=== PATIENT | male | born 1960 | race Caucasian/White ===

== ENCOUNTER 2019-10-20 09:41 | Outpatient (RCR) | payer BC, OTHER, SELFPAY ==
[2019-07-24 11:21] LABS: Hematocrit 44.2 % (42.0-52.0); Hemoglobin 15.1 g/dL (14.0-18.0); Mean Corpuscular HGB Conc 34.2 g/dl (32-36); Mean Corpuscular Hemoglobin 32.5 pg (26-34); Mean Corpuscular Volume 95.1 fl (80-100); Platelet Count Result 153 k/mm3 (150-375); Red Blood Count 4.65 M/mm3 (4.6-6.20); Red Cell Distribution Width 14.1 % (11.5-14.5); White Blood Count 4.5 K/mm3 (4.5-10.0)
[2019-07-24 11:34] LABS: Alanine Aminotransferase 34 U/L (4-50); Albumin Level 4.1 g/dL (3.5-5.1); Alkaline Phosphatase 51 U/L (38-126); Aspartate Amino Transferase 27 U/L (17-59); Bilirubin,Total 0.3 mg/dL (0.2-1.3); Blood Urea Nitrogen 14 mg/dL (9-20); Calcium 9.3 mg/dL (8.4-10.2); Carbon Dioxide 25 mmol/L (22-30); Chloride 106 mmol/L (98-107); Estimated Glomerular Filt Rate > 60; Glucose 94 mg/dL (75-110); Potassium 3.8 mmol/L (3.4-5.0); Sodium 139 mmol/L (137-145)
[2019-10-20 10:06] LABS: Hematocrit 42.7 % (42.0-52.0); Hemoglobin 14.2 g/dL (14.0-18.0); Mean Corpuscular HGB Conc 33.3 g/dl (32-36); Mean Corpuscular Hemoglobin 31.8 pg (26-34); Mean Corpuscular Volume 95.5 fl (80-100); Mean Platelet Volume 11.4 fl (7.4-10.4); Platelet Count Result 143 k/mm3 (150-375); Red Blood Count 4.47 M/mm3 (4.6-6.20); Red Cell Distribution Width 14.2 % (11.5-14.5); White Blood Count 3.7 K/mm3 (4.5-10.0)
[2019-10-20 10:16] LABS: Alanine Aminotransferase 104 U/L (4-50); Alkaline Phosphatase 60 U/L (38-126); Aspartate Amino Transferase 56 U/L (17-59); Bilirubin,Total 0.5 mg/dL (0.2-1.3); Blood Urea Nitrogen 16 mg/dL (9-20); Calcium 9.3 mg/dL (8.4-10.2); Carbon Dioxide 29 mmol/L (22-30); Chloride 102 mmol/L (98-107); Estimated Glomerular Filt Rate > 60; Glucose 89 mg/dL (75-110); Potassium 3.9 mmol/L (3.4-5.0); Sodium 137 mmol/L (137-145)
== END 2019-10-22 23:59 | disposition home or self-care (01) ==
LOC: ANHLAB 09:41
PROVIDERS: PCP Internal Medicine; Visit Provider Internal Medicine Rheumatology
DX: Z51.81 Encounter for therapeutic drug level monitoring (principal); Z79.899 Other long term (current) drug therapy
CPT/HCPCS: 36415; 80048; 80076; 85027

== ENCOUNTER 2020-01-13 09:54 | Outpatient (RCR) | payer OTHER, SELFPAY ==
[2020-01-13 10:32] LABS: Hemoglobin 15.4 g/dL (14.0-18.0); Mean Corpuscular HGB Conc 33.5 g/dl (32-36); Mean Corpuscular Hemoglobin 31.8 pg (26-34); Mean Corpuscular Volume 94.8 fl (80-100); Mean Platelet Volume 11.8 fl (7.4-10.4); Platelet Count Result 150 k/mm3 (150-375); Red Blood Count 4.85 M/mm3 (4.6-6.20); Red Cell Distribution Width 14.8 % (11.5-14.5); White Blood Count 8.1 K/mm3 (4.5-10.0)
[2020-01-13 10:46] LABS: Alanine Aminotransferase 62 U/L (4-50); Albumin Level 4.3 g/dL (3.5-5.1); Alkaline Phosphatase 64 U/L (38-126); Aspartate Amino Transferase 39 U/L (17-59); Bilirubin,Total 0.4 mg/dL (0.2-1.3); Blood Urea Nitrogen 13 mg/dL (9-20); Calcium 9.5 mg/dL (8.4-10.2); Carbon Dioxide 30 mmol/L (22-30); Chloride 103 mmol/L (98-107); Cholesterol 135 mg/dL (0-200); Estimated Glomerular Filt Rate > 60; Glucose 92 mg/dL (75-110); HDL Direct 35 mg/dL; Potassium 4.5 mmol/L (3.4-5.0); Sodium 137 mmol/L (137-145); Triglycerides 172 mg/dL (<150)
[2020-01-13 10:57] LABS: LDL Cholesterol Direct 76 mg/dL
== END 2020-04-12 23:59 | disposition home or self-care (01) ==
LOC: ANHLAB 09:54
PROVIDERS: PCP Internal Medicine; Visit Provider Internal Medicine Rheumatology
DX: Z51.81 Encounter for therapeutic drug level monitoring (principal); I10 Essential (primary) hypertension; Z79.899 Other long term (current) drug therapy
CPT/HCPCS: 36415; 80053; 80061; 82248; 85027

== ENCOUNTER 2020-05-24 03:44 | Outpatient (CLI) | payer OTHER, SELFPAY ==
[2020-05-24 18:37] LABS: SARS-CoV-2 RNA PCR Negative
== END 2020-05-24 03:45 | disposition home or self-care (01) ==
LOC: ANHCOVIDDT 03:44
PROVIDERS: PCP Internal Medicine; Visit Provider Internal Medicine Gastroenterology
DX: Z01.812 Encounter for preprocedural laboratory examination (principal); Z20.828 Contact with and (suspected) exposure to other viral communicable diseases
CPT/HCPCS: 87635; C9803; U0003

== ENCOUNTER 2020-05-26 00:50 | Day surgery (SDC) | payer OTHER, SELFPAY ==
[2020-05-18 14:49] VITALS: BMI 36.3
[2020-05-26 07:34] VITALS: BP 116/69; PULSE 76; RESP 22; TEMP 36.4; O2SAT 96
[2020-05-26] MEDS: LACTATED RINGERS 1,000 ML 150 ML IV CONT (07:36)
--- NOTE | 2020-05-26 08:54 | P.HP_ITS ---
History of Present Illness History of Present Illness Consent: Risks, benefits, and alternatives have been discussed and questions answered. Patient agrees to proceed with procedure. Chief complaint: Dysphagia Narrative: Frank Hooks is a 59 year old W male referred for EGD and possible esophageal dilatation for evaluation of least 1 year history of dysphagia which has worsened over the past several months. Patient states that this can occur with liquids or solids. He also has associated chest pain in the midsternal region. He has a history of chronic heartburn is not taking any medication. He has had no weight loss. His nonsmoker alcohol socially. He has never had EGD in the past. States he had a colonoscopy several years ago by another examiner reportedly had a couple polyps in was asked return in 5 years. COUNT INCLUDES THE [facility] Past Medical History Medical History (Updated 05/26/20 @ 08:56 by Prasad Blackwell MD) CAD (coronary artery disease) Congestive heart failure (CHF) EF 60 percent Fusion of lumbar spine Hyperlipidemia Hypertension Rheumatoid arthritis Meds Home Medications and Allergies Home Medications Medication Instructions Recorded Confirmed Type Tumeric 500 mg PO DAILY 05/18/20 05/18/20 History aspirin 81 mg PO DAILY 05/18/20 05/18/20 History carvedilol 3.125 mg PO DAILY 05/18/20 05/18/20 History cyanocobalamin (vitamin B-12) 1,000 mcg IM MONTHLY 05/18/20 05/18/20 History etanercept [Enbrel Mini] 50 mg SUBCUT WEEKLY 05/18/20 05/18/20 History folic acid 1 mg PO DAILY 05/18/20 05/18/20 History furosemide 20 mg PO DAILY 05/18/20 05/18/20 History isosorbide mononitrate 30 mg PO DAILY 05/18/20 05/18/20 History lisinopril 10 mg PO DAILY 05/18/20 05/18/20 History methotrexate sodium 25 mg PO WEEKLY 05/18/20 05/18/20 History naloxone [Narcan] 1 spray INTRANASAL Q2M 05/18/20 05/18/20 History nitroglycerin [Nitrostat] 0.4 mg SUBLINGUAL Q5-15M PRN 05/18/20 05/18/20 History pregabalin 100 mg PO TID 05/18/20 05/18/20 History rosuvastatin 20 mg PO HS 05/18/20 05/18/20 History tapentadol [Nucynta ER] 100 mg PO BID 05/18/20 05/18/20 History vitamin B complex 1 cap PO DAILY 05/18/20 05/18/20 History Allergies Allergy/AdvReac Type Severity Reaction Status Date / Time shellfish derived Allergy Swelling Verified 05/26/20 07:33 of Lip/Tongue/Throat Vital Signs Vital Signs - 24 hr 05/26/20 07:34 Temperature 36.4 C Pulse Rate 76 Respiratory Rate 22 H Blood Pressure 116/69 Pulse Oximetry 96 Exam Const: Orientation/consciousness: patient oriented x3 Resp: Auscultation: clear to auscultation bilaterally Cardio: Rate: regular rate Rhythm: regular rhythm Heart sounds: no murmurs GI: GI Palp: Yes Soft to palpation, No Tenderness to palpation present (GI), Yes No hepatosplenomegaly present and No Palpable mass present Auscultation: normal bowel sounds Neuro: General: patient oriented x3 and no focal motor deficits Extrem: General: no pedal edema Assessment and Plan Additional Plan EGD with possible esophageal dilatation for evaluation of dysphagia
--- NOTE | 2020-05-26 08:56 | WPDANESEPPF ---
Anes - Initial Pre Proc Eval Procedure: Operation Date: 05/26/20 08:30 Proposed Procedures p Esophagogastroduodenoscopy - Prasad Blackwell MD Date/Time: 05/26/20 08:56 Surgeon: Prasad Blackwell MD Pre Op Diagnosis: Dysphagia Patient Data Age: 59 Gender: M Height: 5 ft 6 in Weight: 102 kg Last Vital Signs Temp 97.6 F 05/26/20 07:34 Pulse 76 05/26/20 07:34 Resp 22 H 05/26/20 07:34 BP 116/69 05/26/20 07:34 Pulse Ox 96 05/26/20 07:34 Allergies Allergy/AdvReac Type Severity Reaction Status Date / Time shellfish derived Allergy Swelling Verified 05/26/20 07:33 of Lip/Tongue/Throat Home Medications Medication Instructions Recorded Confirmed Type Tumeric 500 mg PO DAILY 05/18/20 05/18/20 History aspirin 81 mg PO DAILY 05/18/20 05/18/20 History carvedilol 3.125 mg PO DAILY 05/18/20 05/18/20 History cyanocobalamin (vitamin B-12) 1,000 mcg IM MONTHLY 05/18/20 05/18/20 History etanercept [Enbrel Mini] 50 mg SUBCUT WEEKLY 05/18/20 05/18/20 History folic acid 1 mg PO DAILY 05/18/20 05/18/20 History furosemide 20 mg PO DAILY 05/18/20 05/18/20 History isosorbide mononitrate 30 mg PO DAILY 05/18/20 05/18/20 History lisinopril 10 mg PO DAILY 05/18/20 05/18/20 History methotrexate sodium 25 mg PO WEEKLY 05/18/20 05/18/20 History naloxone [Narcan] 1 spray INTRANASAL Q2M 05/18/20 05/18/20 History nitroglycerin [Nitrostat] 0.4 mg SUBLINGUAL Q5-15M PRN 05/18/20 05/18/20 History pregabalin 100 mg PO TID 05/18/20 05/18/20 History rosuvastatin 20 mg PO HS 05/18/20 05/18/20 History tapentadol [Nucynta ER] 100 mg PO BID 05/18/20 05/18/20 History vitamin B complex 1 cap PO DAILY 05/18/20 05/18/20 History Patient hx anesthesia problems: none Family hx anesthesia problems: none Anes - Eval Final PreProcedure Day of Procedure 05/26/20 08:56 Patient weight: overweight Heart: regular rate and rhythm Lungs: clear to auscultation Airway: Mallampati scale class II Neurological: alert and oriented Last oral intake: >/= 8 hours ASA classification: III Emergent: no Anesthetic plan: proceed Anesthesia type and monitoring: general GIVS and standard monitoring Informed Consent: The patient's anesthetic plan and its attendant risks and benefits were discussed with the patient/family/POA. Questions were solicited and answers provided to the satisfaction of the patient/family/POA.
[2020-05-26 09:17] VITALS: BP 100/63; PULSE 82; RESP 21; O2SAT 93
[2020-05-26 09:27] VITALS: BP 117/53; PULSE 75; RESP 23; O2SAT 96
[2020-05-26 09:36] VITALS: BP 107/68; PULSE 71; RESP 12; O2SAT 96
== END 2020-05-26 09:53 | disposition home or self-care (01) ==
PROVIDERS: PCP Internal Medicine; Visit Provider Internal Medicine Gastroenterology
PROC: 0DJ08ZZ Inspection of Upper Intestinal Tract, Via Natural or Artificial Opening Endoscopic (ICD-10-PCS; CPT 43235; principal; 2020-05-26 08:30)
DX: K22.11 Ulcer of esophagus with bleeding (principal); K21.0 Gastro-esophageal reflux disease with esophagitis; K22.2 Esophageal obstruction; K44.9 Diaphragmatic hernia without obstruction or gangrene; I11.0 Hypertensive heart disease with heart failure; I50.9 Heart failure, unspecified; I25.10 Atherosclerotic heart disease of native coronary artery without angina pectoris; E78.5 Hyperlipidemia, unspecified; M06.9 Rheumatoid arthritis, unspecified; Z98.1 Arthrodesis status; Z79.82 Long term (current) use of aspirin
CPT/HCPCS: 43239; 87635; 88305; C9803; J2704; J7120; U0003

== ENCOUNTER 2020-07-11 10:15 | Outpatient (RCR) | payer OTHER, SELFPAY ==
[2020-04-14 10:57] LABS: Hematocrit 46.1 % (42.0-52.0); Hemoglobin 15.9 g/dL (14.0-18.0); Mean Corpuscular HGB Conc 34.5 g/dl (32-36); Mean Corpuscular Hemoglobin 32.4 pg (26-34); Mean Corpuscular Volume 93.9 fl (80-100); Platelet Count Result 168 k/mm3 (150-375); Red Blood Count 4.91 M/mm3 (4.6-6.20); Red Cell Distribution Width 14.6 % (11.5-14.5); White Blood Count 7.2 K/mm3 (4.5-10.0)
[2020-04-14 11:15] LABS: Alanine Aminotransferase 52 U/L (4-50); Albumin Level 4.2 g/dL (3.5-5.1); Alkaline Phosphatase 47 U/L (38-126); Anion Gap 10.8 mmol/L (7-16); Aspartate Amino Transferase 50 U/L (17-59); Bilirubin,Total 0.8 mg/dL (0.2-1.3); Blood Urea Nitrogen 14 mg/dL (9-20); Calcium 8.7 mg/dL (8.4-10.2); Carbon Dioxide 28 mmol/L (22-30); Chloride 103 mmol/L (98-107); Estimated Glomerular Filt Rate > 60; Glucose 88 mg/dL (75-110); Potassium 4.8 mmol/L (3.4-5.0); Sodium 137 mmol/L (137-145)
[2020-07-11 11:06] LABS: Hemoglobin 15.7 g/dL (14.0-18.0); Mean Corpuscular HGB Conc 34.9 g/dl (32-36); Mean Corpuscular Hemoglobin 31.8 pg (26-34); Mean Corpuscular Volume 91.3 fl (80-100); Mean Platelet Volume 12.2 fl (7.4-10.4); Platelet Count Result 163 k/mm3 (150-375); Red Blood Count 4.93 M/mm3 (4.6-6.20); White Blood Count 5.4 K/mm3 (4.5-10.0)
[2020-07-11 11:18] LABS: Alanine Aminotransferase 77 U/L (4-50); Albumin Level 4.2 g/dL (3.5-5.1); Alkaline Phosphatase 62 U/L (38-126); Anion Gap 5 mmol/L (8-16); Aspartate Amino Transferase 52 U/L (17-59); Bilirubin,Total 0.8 mg/dL (0.2-1.3); Blood Urea Nitrogen 22 mg/dL (9-20); Calcium 9.5 mg/dL (8.4-10.2); Carbon Dioxide 28 mmol/L (22-30); Chloride 105 mmol/L (98-107); Estimated Glomerular Filt Rate > 60; Glucose 101 mg/dL (75-110); Potassium 3.9 mmol/L (3.4-5.0); Sodium 138 mmol/L (137-145)
== END 2020-07-13 23:59 | disposition home or self-care (01) ==
LOC: ANHLAB 10:15
PROVIDERS: PCP Internal Medicine; Visit Provider Internal Medicine Rheumatology
DX: Z51.81 Encounter for therapeutic drug level monitoring (principal); Z79.899 Other long term (current) drug therapy
CPT/HCPCS: 36415; 80048; 80076; 85027

== ENCOUNTER 2021-01-09 10:34 | Outpatient (RCR) | payer OTHER, SELFPAY ==
[2020-10-15 08:24] LABS: Basophils Percent Auto 0.3 % (0.2-1.2); Eosinophils Absolute Auto 0.1 K/mm3 (0-0.3); Eosinophils Percent Auto 1.7 % (0-4.4); Hemoglobin 15.1 g/dL (14.0-18.0); Immature Granulocyte Absolute 0.06 K/mm3 (0.00-0.031); Lymphocytes Absolute Auto 1.15 K/mm3 (0.9-3.2); Mean Corpuscular HGB Conc 34.3 g/dl (32-36); Mean Corpuscular Volume 93.2 fl (80-100); Monocytes Absolute Auto 0.5 K/mm3 (0.1-0.6); Monocytes Percent Auto 8.3 % (2.6-8.5); Neutrophils Absolute Auto 4.2 K/mm3 (1.3-6.7); Neutrophils Percent Auto 69.7 % (45.5-73.1); Platelet Count Result 133 k/mm3 (150-375); Red Blood Count 4.72 M/mm3 (4.6-6.20); Red Cell Distribution Width 14.9 % (11.5-14.5); White Blood Count 6.1 K/mm3 (4.5-10.0)
[2020-10-15 08:41] LABS: Alanine Aminotransferase 60 U/L (4-50); Albumin Level 3.7 g/dL (3.5-5.1); Alkaline Phosphatase 70 U/L (38-126); Anion Gap 3 mmol/L (8-16); Aspartate Amino Transferase 44 U/L (17-59); Bilirubin,Total 0.6 mg/dL (0.2-1.3); Blood Urea Nitrogen 6 mg/dL (9-20); Calcium 9.2 mg/dL (8.4-10.2); Carbon Dioxide 29 mmol/L (22-30); Chloride 108 mmol/L (98-107); Estimated Glomerular Filt Rate > 60; Glucose 116 mg/dL (75-110); Sodium 140 mmol/L (137-145)
[2020-10-20 13:43] LABS: Testosterone Free 64.4 pg/mL (35.0-155.0); Testosterone Total 370 ng/dL (250-1100)
[2021-01-09 11:25] LABS: Basophils Percent Auto 0.6 % (0.2-1.2); Eosinophils Absolute Auto 0.1 K/mm3 (0-0.3); Eosinophils Percent Auto 1.6 % (0-4.4); Hematocrit 44.1 % (42.0-52.0); Hemoglobin 15.5 g/dL (14.0-18.0); Immature Granulocyte Absolute 0.02 K/mm3 (0.00-0.031); Immature Granulocyte Percent A 0.4 % (0-0.5); Lymphocytes Percent Auto 35.2 % (18.3-44.2); Mean Corpuscular HGB Conc 35.1 g/dl (32-36); Mean Corpuscular Hemoglobin 32.6 pg (26-34); Mean Corpuscular Volume 92.6 fl (80-100); Mean Platelet Volume 12.5 fl (7.4-10.4); Monocytes Absolute Auto 0.5 K/mm3 (0.1-0.6); Monocytes Percent Auto 9.6 % (2.6-8.5); Neutrophils Absolute Auto 2.7 K/mm3 (1.3-6.7); Neutrophils Percent Auto 52.6 % (45.5-73.1); Platelet Count Result 134 k/mm3 (150-375); Red Blood Count 4.76 M/mm3 (4.6-6.20); Red Cell Distribution Width 14.6 % (11.5-14.5); White Blood Count 5.1 K/mm3 (4.5-10.0)
[2021-01-09 11:32] LABS: Alanine Aminotransferase 122 U/L (4-50); Albumin Level 3.8 g/dL (3.5-5.1); Alkaline Phosphatase 68 U/L (38-126); Anion Gap 5 mmol/L (8-16); Aspartate Amino Transferase 76 U/L (17-59); Bilirubin,Total 0.4 mg/dL (0.2-1.3); Blood Urea Nitrogen 14 mg/dL (9-20); Calcium 8.7 mg/dL (8.4-10.2); Carbon Dioxide 25 mmol/L (22-30); Chloride 107 mmol/L (98-107); Estimated Glomerular Filt Rate > 60; Glucose 87 mg/dL (75-110); Potassium 3.8 mmol/L (3.4-5.0); Sodium 137 mmol/L (137-145)
== END 2021-01-13 23:59 | disposition home or self-care (01) ==
LOC: ANHLAB 10:34
PROVIDERS: Family Provider Internal Medicine; PCP Internal Medicine; Referring Provider Internal Medicine; Visit Provider Internal Medicine Rheumatology
DX: Z51.81 Encounter for therapeutic drug level monitoring (principal); R79.89 Other specified abnormal findings of blood chemistry; Z79.899 Other long term (current) drug therapy
CPT/HCPCS: 36415; 80048; 80076; 84402; 84403; 85025

== ENCOUNTER 2021-02-21 10:30 | Outpatient (CLI) | payer OTHER, SELFPAY ==
[2021-02-21 11:22] LABS: Alanine Aminotransferase 109 U/L (4-50); Alkaline Phosphatase 71 U/L (38-126); Aspartate Amino Transferase 72 U/L (17-59); Bilirubin,Total 0.5 mg/dL (0.2-1.3)
== END 2021-02-21 10:31 | disposition home or self-care (01) ==
PROVIDERS: PCP Internal Medicine; Visit Provider Internal Medicine Rheumatology
DX: Z51.81 Encounter for therapeutic drug level monitoring (principal); Z79.899 Other long term (current) drug therapy
CPT/HCPCS: 36415; 80076

== ENCOUNTER 2021-04-04 11:12 | Outpatient (RCR) | payer OTHER, SELFPAY ==
[2021-04-04 11:53] LABS: Basophils Absolute Auto 0.1 K/mm3 (0.0-0.1); Basophils Percent Auto 0.7 % (0.2-1.2); Eosinophils Absolute Auto 0.1 K/mm3 (0-0.3); Eosinophils Percent Auto 1.3 % (0-4.4); Hematocrit 48.4 % (42.0-52.0); Hemoglobin 16.7 g/dL (14.0-18.0); Immature Granulocyte Absolute 0.07 K/mm3 (0.00-0.031); Lymphocytes Absolute Auto 2.24 K/mm3 (0.9-3.2); Mean Corpuscular HGB Conc 34.5 g/dl (32-36); Mean Corpuscular Hemoglobin 32.3 pg (26-34); Mean Corpuscular Volume 93.6 fl (80-100); Mean Platelet Volume 12.6 fl (7.4-10.4); Monocytes Absolute Auto 0.6 K/mm3 (0.1-0.6); Monocytes Percent Auto 8.8 % (2.6-8.5); Neutrophils Absolute Auto 3.7 K/mm3 (1.3-6.7); Neutrophils Percent Auto 55.2 % (45.5-73.1); Platelet Count Result 127 k/mm3 (150-375); Red Blood Count 5.17 M/mm3 (4.6-6.20); Red Cell Distribution Width 13.1 % (11.5-14.5); White Blood Count 6.8 K/mm3 (4.5-10.0)
[2021-04-04 11:58] LABS: Alanine Aminotransferase 122 U/L (4-50); Albumin Level 4.1 g/dL (3.5-5.1); Alkaline Phosphatase 87 U/L (38-126); Anion Gap 7 mmol/L (8-16); Aspartate Amino Transferase 70 U/L (17-59); Bilirubin,Total 0.5 mg/dL (0.2-1.3); Blood Urea Nitrogen 11 mg/dL (9-20); Calcium 9.2 mg/dL (8.4-10.2); Carbon Dioxide 27 mmol/L (22-30); Chloride 106 mmol/L (98-107); Estimated Glomerular Filt Rate > 60; Glucose 88 mg/dL (75-110); Potassium 4.5 mmol/L (3.4-5.0); Sodium 140 mmol/L (137-145)
[2021-04-04 12:59] LABS: Hepatitis B Surface Antigen Negative (Negative)
[2021-04-04 13:17] LABS: Hepatitis B Surface Anti Res Negative; Hepatitis C Virus Antibody Negative (Negative)
[2021-04-06 17:44] LABS: Hepatitis C RNA, Quant PCR <15 IU/mL
[2021-04-06 18:56] LABS: Hepatitis B Core Ab Total Nonreactive (Nonreactive)
[2021-04-06 19:22] LABS: Hepatitis B DNA PCR <1.00 Log IU/mL; Hepatitis B DNA PCR <10 IU/mL
[2021-04-09 22:46] LABS: NIL 0.09 IU/mL; Quantiferon TB Plus, 1T NEGATIVE (NEGATIVE); TB1-NIL 0.05 IU/mL; TB2-NIL 0.07 IU/mL
== END 2021-07-03 23:59 | disposition home or self-care (01) ==
LOC: ANHLAB 11:12
PROVIDERS: PCP Internal Medicine; Visit Provider Internal Medicine Rheumatology
DX: Z51.81 Encounter for therapeutic drug level monitoring (principal); Z79.899 Other long term (current) drug therapy; Z11.59 Encounter for screening for other viral diseases
CPT/HCPCS: 36415; 80048; 80076; 85025; 86480; 86704; 86706; 86803; 87340; 87517; 87522

== ENCOUNTER 2021-05-11 10:16 | Outpatient (CLI) | payer OTHER, SELFPAY ==
[2021-05-11 10:56] LABS: Alanine Aminotransferase 127 U/L (4-50); Albumin Level 4.3 g/dL (3.5-5.1); Alkaline Phosphatase 81 U/L (38-126); Aspartate Amino Transferase 66 U/L (17-59); Bilirubin,Total 0.7 mg/dL (0.2-1.3)
== END 2021-05-11 10:17 | disposition home or self-care (01) ==
LOC: ANHLAB 10:21
PROVIDERS: PCP Internal Medicine; Visit Provider Internal Medicine Rheumatology
DX: Z51.81 Encounter for therapeutic drug level monitoring (principal)
CPT/HCPCS: 36415; 80076

== ENCOUNTER 2021-08-08 09:50 | Outpatient (RCR) | payer OTHER, SELFPAY ==
[2021-08-08 10:49] LABS: Basophils Absolute Auto 0.1 K/mm3 (0.0-0.1); Basophils Percent Auto 0.6 % (0.2-1.2); Eosinophils Absolute Auto 0.1 K/mm3 (0-0.3); Eosinophils Percent Auto 0.6 % (0-4.4); Hematocrit 51.1 % (42.0-52.0); Hemoglobin 17.7 g/dL (14.0-18.0); Immature Granulocyte Absolute 0.12 K/mm3 (0.00-0.031); Immature Granulocyte Percent A 1.4 % (0-0.5); Lymphocytes Absolute Auto 2.07 K/mm3 (0.9-3.2); Lymphocytes Percent Auto 24.5 % (18.3-44.2); Mean Corpuscular HGB Conc 34.6 g/dl (32-36); Mean Corpuscular Hemoglobin 32.5 pg (26-34); Mean Corpuscular Volume 93.8 fl (80-100); Mean Platelet Volume 12.3 fl (7.4-10.4); Monocytes Absolute Auto 0.5 K/mm3 (0.1-0.6); Monocytes Percent Auto 5.6 % (2.6-8.5); Neutrophils Absolute Auto 5.7 K/mm3 (1.3-6.7); Neutrophils Percent Auto 67.3 % (45.5-73.1); Platelet Count Result 168 k/mm3 (150-375); Red Blood Count 5.45 M/mm3 (4.6-6.20); Red Cell Distribution Width 13.4 % (11.5-14.5); White Blood Count 8.5 K/mm3 (4.5-10.0)
[2021-08-08 11:06] LABS: Alanine Aminotransferase 103 U/L (4-50); Albumin Level 4.5 g/dL (3.5-5.1); Alkaline Phosphatase 72 U/L (38-126); Anion Gap 9 mmol/L (8-16); Aspartate Amino Transferase 59 U/L (17-59); Bilirubin,Total 0.6 mg/dL (0.2-1.3); Blood Urea Nitrogen 17 mg/dL (9-20); Calcium 9.6 mg/dL (8.4-10.2); Carbon Dioxide 25 mmol/L (22-30); Chloride 102 mmol/L (98-107); Estimated Glomerular Filt Rate > 60; Glucose 131 mg/dL (65-110); Potassium 4.7 mmol/L (3.4-5.0); Sodium 136 mmol/L (137-145)
== END 2021-11-06 23:59 | disposition home or self-care (01) ==
LOC: ANHLAB 09:50
PROVIDERS: PCP Internal Medicine; Visit Provider Internal Medicine Rheumatology
DX: Z51.81 Encounter for therapeutic drug level monitoring (principal); Z11.59 Encounter for screening for other viral diseases; Z79.899 Other long term (current) drug therapy
CPT/HCPCS: 36415; 80048; 80076; 85025

== ENCOUNTER 2021-11-07 11:51 | Outpatient (RCR) | payer OTHER, SELFPAY ==
[2021-11-07 12:22] LABS: Basophils Absolute Auto 0.1 K/mm3 (0.0-0.1); Basophils Percent Auto 0.6 % (0.2-1.2); Eosinophils Absolute Auto 0.1 K/mm3 (0-0.3); Hematocrit 48.8 % (42.0-52.0); Hemoglobin 16.7 g/dL (14.0-18.0); Immature Granulocyte Absolute 0.04 K/mm3 (0.00-0.031); Immature Granulocyte Percent A 0.5 % (0-0.5); Lymphocytes Absolute Auto 3.25 K/mm3 (0.9-3.2); Lymphocytes Percent Auto 40.2 % (18.3-44.2); Mean Corpuscular HGB Conc 34.2 g/dl (32-36); Mean Corpuscular Hemoglobin 32.2 pg (26-34); Mean Corpuscular Volume 94.2 fl (80-100); Mean Platelet Volume 12.2 fl (7.4-10.4); Monocytes Absolute Auto 0.7 K/mm3 (0.1-0.6); Monocytes Percent Auto 8.9 % (2.6-8.5); Neutrophils Absolute Auto 3.9 K/mm3 (1.3-6.7); Neutrophils Percent Auto 48.8 % (45.5-73.1); Platelet Count Result 162 k/mm3 (150-375); Red Blood Count 5.18 M/mm3 (4.6-6.20); Red Cell Distribution Width 13.2 % (11.5-14.5); White Blood Count 8.1 K/mm3 (4.5-10.0)
[2021-11-07 12:42] LABS: Alanine Aminotransferase 62 U/L (4-50); Albumin Level 4.4 g/dL (3.5-5.1); Alkaline Phosphatase 70 U/L (38-126); Anion Gap 6 mmol/L (8-16); Aspartate Amino Transferase 44 U/L (17-59); Bilirubin,Total 0.8 mg/dL (0.2-1.3); Blood Urea Nitrogen 13 mg/dL (9-20); Calcium 9.1 mg/dL (8.4-10.2); Carbon Dioxide 29 mmol/L (22-30); Chloride 103 mmol/L (98-107); Estimated Glomerular Filt Rate > 60; Glucose 91 mg/dL (65-110); Potassium 4.2 mmol/L (3.4-5.0); Sodium 138 mmol/L (137-145)
== END 2022-02-05 23:59 | disposition home or self-care (01) ==
LOC: ANHLAB 11:51
PROVIDERS: PCP Internal Medicine; Visit Provider Internal Medicine Rheumatology
DX: Z51.81 Encounter for therapeutic drug level monitoring (principal); Z79.899 Other long term (current) drug therapy
CPT/HCPCS: 36415; 80048; 80076; 85025

== ENCOUNTER 2022-02-06 11:34 | Outpatient (CLI) | payer OTHER, SELFPAY ==
[2022-02-06 13:53] LABS: Alanine Aminotransferase 43 U/L (6-50); Albumin Level 4.5 g/dL (3.5-5.1); Alkaline Phosphatase 72 U/L (38-126); Anion Gap 6 mmol/L (8-16); Aspartate Amino Transferase 38 U/L (17-59); Bilirubin,Total 0.6 mg/dL (0.2-1.3); Blood Urea Nitrogen 17 mg/dL (9-20); Calcium 9.1 mg/dL (8.4-10.2); Carbon Dioxide 29 mmol/L (22-30); Chloride 103 mmol/L (98-107); Cholesterol 132 mg/dL (0-200); Estimated Glomerular Filt Rate > 60; Glucose 73 mg/dL (65-110); HDL Direct 37 mg/dL; Potassium 4.5 mmol/L (3.4-5.0); Sodium 138 mmol/L (137-145); Triglycerides 196 mg/dL (<150)
[2022-02-06 14:04] LABS: LDL Cholesterol Direct 61 mg/dL
[2022-02-06 14:23] LABS: Prostate Specific Antigen 0.6 ng/mL (< OR = 4.0)
== END 2022-02-06 11:35 | disposition home or self-care (01) ==
LOC: ANHLAB 11:37
PROVIDERS: PCP Internal Medicine; Visit Provider Internal Medicine
DX: Z12.5 Encounter for screening for malignant neoplasm of prostate (principal); I10 Essential (primary) hypertension
CPT/HCPCS: 36415; 80053; 80061; 84153; 85025; G0103

== ENCOUNTER 2022-02-06 11:40 | Outpatient (RCR) | payer OTHER, SELFPAY ==
[2022-02-06 13:43] LABS: Basophils Absolute Auto 0.1 K/mm3 (0.0-0.1); Basophils Percent Auto 0.7 % (0.2-1.2); Eosinophils Absolute Auto 0.1 K/mm3 (0-0.3); Eosinophils Percent Auto 1.2 % (0-4.4); Hematocrit 49.8 % (42.0-52.0); Hemoglobin 16.7 g/dL (14.0-18.0); Immature Granulocyte Absolute 0.03 K/mm3 (0.00-0.031); Immature Granulocyte Percent A 0.4 % (0-0.5); Lymphocytes Absolute Auto 2.82 K/mm3 (0.9-3.2); Lymphocytes Percent Auto 36.7 % (18.3-44.2); Mean Corpuscular HGB Conc 33.5 g/dl (32-36); Mean Corpuscular Hemoglobin 31.7 pg (26-34); Mean Corpuscular Volume 94.7 fl (80-100); Mean Platelet Volume 12.7 fl (7.4-10.4); Monocytes Absolute Auto 0.7 K/mm3 (0.1-0.6); Monocytes Percent Auto 8.9 % (2.6-8.5); Neutrophils Percent Auto 52.1 % (45.5-73.1); Platelet Count Result 143 k/mm3 (150-375); Red Blood Count 5.26 M/mm3 (4.6-6.20); Red Cell Distribution Width 13.2 % (11.5-14.5); White Blood Count 7.7 K/mm3 (4.5-10.0)
== END 2022-05-07 23:59 | disposition home or self-care (01) ==
LOC: ANHLAB 11:40
PROVIDERS: PCP Internal Medicine; Visit Provider Internal Medicine Rheumatology
DX: Z51.81 Encounter for therapeutic drug level monitoring (principal); Z79.899 Other long term (current) drug therapy
CPT/HCPCS: 36415; 85025

== ENCOUNTER 2022-08-07 10:24 | Outpatient (RCR) | payer OTHER, SELFPAY ==
[2022-05-10 11:24] LABS: Basophils Absolute Auto 0.1 K/mm3 (0.0-0.1); Basophils Percent Auto 0.8 % (0.2-1.2); Eosinophils Absolute Auto 0.1 K/mm3 (0-0.3); Eosinophils Percent Auto 1.3 % (0-4.4); Hematocrit 49.6 % (42.0-52.0); Hemoglobin 16.8 g/dL (14.0-18.0); Immature Granulocyte Absolute 0.04 K/mm3 (0.00-0.031); Immature Granulocyte Percent A 0.5 % (0-0.5); Lymphocytes Absolute Auto 2.94 K/mm3 (0.9-3.2); Lymphocytes Percent Auto 37.5 % (18.3-44.2); Mean Corpuscular HGB Conc 33.9 g/dl (32-36); Mean Corpuscular Hemoglobin 31.3 pg (26-34); Mean Corpuscular Volume 92.4 fl (80-100); Mean Platelet Volume 12.2 fl (7.4-10.4); Monocytes Absolute Auto 0.6 K/mm3 (0.1-0.6); Monocytes Percent Auto 7.8 % (2.6-8.5); Neutrophils Absolute Auto 4.1 K/mm3 (1.3-6.7); Neutrophils Percent Auto 52.1 % (45.5-73.1); Platelet Count Result 161 k/mm3 (150-375); Red Blood Count 5.37 M/mm3 (4.6-6.20); Red Cell Distribution Width 13.2 % (11.5-14.5); White Blood Count 7.9 K/mm3 (4.5-10.0)
[2022-05-10 11:27] LABS: Alanine Aminotransferase 32 U/L (6-50); Albumin Level 4.5 g/dL (3.5-5.1); Alkaline Phosphatase 83 U/L (38-126); Anion Gap 8 mmol/L (8-16); Aspartate Amino Transferase 32 U/L (17-59); Bilirubin,Total 0.5 mg/dL (0.2-1.3); Blood Urea Nitrogen 17 mg/dL (9-20); Calcium 9.4 mg/dL (8.4-10.2); Carbon Dioxide 32 mmol/L (22-30); Chloride 99 mmol/L (98-107); Estimated Glomerular Filt Rate > 60; Glucose 88 mg/dL (65-110); Potassium 4.5 mmol/L (3.4-5.0); Sodium 139 mmol/L (137-145)
[2022-08-07 10:52] LABS: Basophils Absolute Auto 0.1 K/mm3 (0.0-0.1); Basophils Percent Auto 0.7 % (0.2-1.2); Eosinophils Absolute Auto 0.1 K/mm3 (0-0.3); Eosinophils Percent Auto 1.7 % (0-4.4); Hematocrit 49.4 % (42.0-52.0); Hemoglobin 16.9 g/dL (14.0-18.0); Immature Granulocyte Absolute 0.05 K/mm3 (0.00-0.031); Immature Granulocyte Percent A 0.6 % (0-0.5); Lymphocytes Absolute Auto 2.95 K/mm3 (0.9-3.2); Lymphocytes Percent Auto 35.6 % (18.3-44.2); Mean Corpuscular HGB Conc 34.2 g/dl (32-36); Mean Corpuscular Hemoglobin 32.1 pg (26-34); Mean Corpuscular Volume 93.7 fl (80-100); Mean Platelet Volume 11.9 fl (7.4-10.4); Monocytes Absolute Auto 0.7 K/mm3 (0.1-0.6); Monocytes Percent Auto 8.4 % (2.6-8.5); Neutrophils Absolute Auto 4.4 K/mm3 (1.3-6.7); Platelet Count Result 157 k/mm3 (150-375); Red Blood Count 5.27 M/mm3 (4.6-6.20); Red Cell Distribution Width 13.6 % (11.5-14.5); White Blood Count 8.3 K/mm3 (4.5-10.0)
[2022-08-07 10:59] LABS: Anion Gap 9 mmol/L (8-16); Blood Urea Nitrogen 11 mg/dL (9-20); Calcium 9.2 mg/dL (8.4-10.2); Carbon Dioxide 28 mmol/L (22-30); Chloride 101 mmol/L (98-107); Estimated Glomerular Filt Rate > 60; Glucose 102 mg/dL (65-110); Potassium 4.3 mmol/L (3.4-5.0); Sodium 138 mmol/L (137-145)
[2022-08-14 08:27] LABS: ALT 33 U/L (9-46); Alpha-2-Macroglobulin 254 mg/dL (106-279); Apolipoprotein A1 153 mg/dL (94-176); Fibrosis Score 0.38; Fibrosis Stage F1-F2; GGT 19 U/L (3-70); Haptoglobin 86 mg/dL (43-212); Necroinflammat Act Grade A0-A1; Total Bilirubin 0.5 mg/dL (0.2-1.2)
== END 2022-08-08 23:59 | disposition home or self-care (01) ==
LOC: ANHLAB 10:24
PROVIDERS: PCP Internal Medicine; Visit Provider Internal Medicine Rheumatology
DX: Z51.81 Encounter for therapeutic drug level monitoring (principal); Z79.899 Other long term (current) drug therapy
CPT/HCPCS: 36415; 80048; 80076; 81596; 85025

== ENCOUNTER 2022-09-06 11:37 | Outpatient (CLI) | payer OTHER, SELFPAY ==
--- NOTE | ~2022-09-06 | XR_ITS ---
AP and lateral views of the right hip Clinical history: Pain Findings: No acute fracture or dislocation is seen. Osseous alignment is anatomic. Bilateral hip and SI joint spaces are preserved. Soft tissues are unremarkable. Impression: No significant abnormality is seen. Reviewed, dictated and finalized at location [] INE TACK PULLER Impression: No significant abnormality is seen.
--- NOTE | ~2022-09-06 | XR_ITS ---
EXAMINATION: XR hand LT 2V, XR wrist LT 2V, XR wrist RT 2V DATE: 09/06/2022 12:57 INDICATION: Multiple joint pain at the bilateral hands and wrists TECHNIQUE: 1. Posteroanterior and lateral views of the left wrist were obtained. 2. Dorsal palmar and lateral views of the left hand were obtained. 3. Posteroanterior and lateral views of the right wrist were obtained. 4. Dorsal palmar and lateral views of the right hand were obtained. COMPARISON: None. FINDINGS: Left hand and wrist: Alignment of the left hand and wrist is normal. No fracture. Polyarticular osteoarthritis, mild to m oderate severity at the left radiocarpal, distal radioulnar and first carpal metacarpal joints and mi nimal to mild at multiple metacarpophalangeal and interphalangeal joints with distal interphalangeal joint predominance. No erosions to suggest inflammatory arthritis. No focal soft tissue swelling. Alignment of the right hand and wrist is normal. No fracture. Polyarticular osteoarthritis, mild to moderate severity at the right first carpal metacarpal joint, mild at the radiocarpal and distal radi oulnar joints and minimal to mild at multiple metacarpophalangeal and interphalangeal joints with dis amanda interphalangeal joint predominance. No erosions to suggest inflammatory arthritis. No focal soft tissue swelling. IMPRESSION: 1. Polyarticular osteoarthritis at the bilateral hands and wrists, mild to moderate severity at the b ilateral first carpometacarpal and left radiocarpal and distal radioulnar joints and otherwise minima l to mild. Reviewed, dictated and finalized at location A. INE PRINTER IMPRESSION: 1. 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 IMPRESSION: 1. 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
--- NOTE | ~2022-09-06 | XR_ITS ---
Right Hand Technique: PA and lateral views were obtained. Clinical History: Pain Findings: No acute fracture or dislocation is seen. Osseous alignment is anatomic. Joint spaces are p reserved. Soft tissues are unremarkable. Impression: Unremarkable right hand. Reviewed, dictated and finalized at location [] EXCHANGE MANAGER Impression: Unremarkable right hand.
--- NOTE | ~2022-09-06 | XR_ITS ---
Left Knee Technique: AP, lateral, and sunrise views were obtained. Clinical History: Pain Findings: No fracture or dislocation is seen. Osseous alignment is anatomic. Minimal patellar spurrin g noted.. Soft tissues are unremarkable. No joint effusion is seen. Impression: Minimal patellar spurring. Reviewed, dictated and finalized at location [] ENT WINDING MACHINE TENDER Impression: Minimal patellar spurring.
--- NOTE | ~2022-09-06 | XR_ITS ---
Right Knee Technique: AP, lateral, and sunrise views were obtained. Clinical History: Pain Findings: No fracture or dislocation is seen. There is a round ossific density at the medial aspect o f the knee on AP view. Osseous alignment is anatomic. Joint spaces are preserved without degenerative or erosive change. Soft tissues are otherwise unremarkable. No joint effusion is seen. Impression: Small round ossific density at the medial aspect of the knee on AP view. This is of uncertain etiolog y. Intra-articular loose body or other heterotopic ossification are considerations. This is new since 05/05/2005. Reviewed, dictated and finalized at location [] DELIER MAKER Impression: Small round ossific density at the medial aspect of the knee on AP view. This i s of uncertain etiology. Intra-articular loose body or other heterotopic ossifi cation are considerations. This is new since 05/05/2005.
--- NOTE | ~2022-09-06 | XR_ITS ---
EXAMINATION: XR ankle LT 2V, XR foot LT 2V, XR foot RT 2V, XR ankle RT 2V DATE: 09/06/2022 12:57 INDICATION: Multiple joint pain at the bilateral feet and ankles TECHNIQUE: 1. Anteroposterior and lateral view of the left ankle were obtained. 2. Dorsoplantar and lateral views of the left foot were obtained. 3. Anteroposterior and lateral view of the right ankle were obtained. 4. Dorsoplantar and lateral views of the right foot were obtained. COMPARISON: None. FINDINGS: Left foot and ankle: Alignment of the left foot and ankle is normal. No fracture or osteochondral lesion. Mild polyarticul ar osteoarthritis at the left navicular cuneiform, first metatarsophalangeal and multiple tarsometata rsal and interphalangeal joints. No erosions to suggest inflammatory arthritis. Moderate-sized planta r calcaneal spur and tiny enthesopathic ossicle at the distal Achilles tendon. No ankle joint effusio n. The soft tissues are unremarkable. Right foot and ankle: Alignment of the right foot and ankle is normal. No fracture or osteochondral lesion. Polyarticular o steoarthritis, moderate severity at the first tarsal metatarsal joint and mild at the navicular cunei form and multiple tarsometatarsal and interphalangeal joints. No erosions to suggest inflammatory art hritis. Moderate-sized plantar calcaneal spur and tiny enthesopathic ossicle at the distal Achilles t endon. No ankle joint effusion. The soft tissues are unremarkable. IMPRESSION: 1. Polyarticular osteoarthritis at the bilateral feet, moderate severity at the right first metatarso phalangeal joint and mild at many of the remaining joints in the bilateral mid and forefeet. Reviewed, dictated and finalized at location A. ERECTOR IMPRESSION: 1. Polyarticular osteoarthritis at the bilateral feet, moderate severity at the right first metatarsophalangeal joint and mild at many of the remaining joints in the bilateral mid and forefeet. IMPRESSION: 1. Polyarticular osteoarthritis at the bilateral feet, moderate severity at the right first metatarsophalangeal joint and mild at many of the remaining joints in the bilateral mid and forefeet. IMPRESSION: 1. Polyarticular osteoarthritis at the bilateral feet, moderate severity at the right first metatarsophalangeal joint and mild at many of the remaining joints in the bilateral mid and forefeet.
[2022-09-06 12:05] LABS: Basophils Absolute Auto 0.1 K/mm3 (0.0-0.1); Basophils Percent Auto 0.6 % (0.2-1.2); Eosinophils Absolute Auto 0.1 K/mm3 (0-0.3); Eosinophils Percent Auto 1.1 % (0-4.4); Hematocrit 48.6 % (42.0-52.0); Hemoglobin 16.6 g/dL (14.0-18.0); Immature Granulocyte Absolute 0.03 K/mm3 (0.00-0.031); Immature Granulocyte Percent A 0.4 % (0-0.5); Lymphocytes Absolute Auto 2.43 K/mm3 (0.9-3.2); Lymphocytes Percent Auto 29.8 % (18.3-44.2); Mean Corpuscular HGB Conc 34.2 g/dl (32-36); Mean Corpuscular Hemoglobin 31.1 pg (26-34); Mean Corpuscular Volume 91.2 fl (80-100); Monocytes Absolute Auto 0.7 K/mm3 (0.1-0.6); Monocytes Percent Auto 8.6 % (2.6-8.5); Neutrophils Absolute Auto 4.9 K/mm3 (1.3-6.7); Neutrophils Percent Auto 59.5 % (45.5-73.1); Platelet Count Result 140 k/mm3 (150-375); Red Blood Count 5.33 M/mm3 (4.6-6.20); Red Cell Distribution Width 13.1 % (11.5-14.5); White Blood Count 8.2 K/mm3 (4.5-10.0)
[2022-09-06 12:22] LABS: Alanine Aminotransferase 38 U/L (6-50); Albumin Level 4.4 g/dL (3.5-5.1); Alkaline Phosphatase 72 U/L (38-126); Anion Gap 8 mmol/L (8-16); Aspartate Amino Transferase 34 U/L (17-59); Bilirubin,Total 0.8 mg/dL (0.2-1.3); Blood Urea Nitrogen 12 mg/dL (9-20); Calcium 8.7 mg/dL (8.4-10.2); Carbon Dioxide 23 mmol/L (22-30); Chloride 104 mmol/L (98-107); Cholesterol 133 mg/dL (0-200); Estimated Glomerular Filt Rate > 60; Glucose 93 mg/dL (65-110); HDL Direct 36 mg/dL; Potassium 3.8 mmol/L (3.4-5.0); Sodium 135 mmol/L (137-145); Triglycerides 187 mg/dL (<150)
[2022-09-06 12:33] LABS: LDL Cholesterol Direct 65 mg/dL
== END 2022-09-06 11:38 | disposition home or self-care (01) ==
PROVIDERS: PCP Internal Medicine; Referring Provider Internal Medicine Rheumatology; Visit Provider Internal Medicine
DX: M25.50 Pain in unspecified joint (principal); M15.9 Polyosteoarthritis, unspecified; I10 Essential (primary) hypertension; M76.52 Patellar tendinitis, left knee; R93.6 Abnormal findings on diagnostic imaging of limbs
CPT/HCPCS: 36415; 73100; 73120; 73502; 73560; 73600; 73620; 80053; 80061; 85025

== ENCOUNTER 2023-01-01 10:39 | Outpatient (RCR) | payer OTHER, SELFPAY ==
[2023-01-01 11:29] LABS: Basophils Percent Auto 0.6 % (0.2-1.2); Eosinophils Absolute Auto 0.1 K/mm3 (0-0.3); Eosinophils Percent Auto 1.4 % (0-4.4); Hemoglobin 16.1 g/dL (14.0-18.0); Immature Granulocyte Absolute 0.05 K/mm3 (0.00-0.031); Immature Granulocyte Percent A 0.8 % (0-0.5); Lymphocytes Absolute Auto 2.46 K/mm3 (0.9-3.2); Lymphocytes Percent Auto 37.9 % (18.3-44.2); Mean Corpuscular HGB Conc 34.3 g/dl (32-36); Mean Corpuscular Hemoglobin 31.2 pg (26-34); Mean Corpuscular Volume 91.1 fl (80-100); Mean Platelet Volume 12.4 fl (7.4-10.4); Monocytes Absolute Auto 0.5 K/mm3 (0.1-0.6); Monocytes Percent Auto 8.2 % (2.6-8.5); Neutrophils Absolute Auto 3.3 K/mm3 (1.3-6.7); Neutrophils Percent Auto 51.1 % (45.5-73.1); Platelet Count Result 145 k/mm3 (150-375); Red Blood Count 5.16 M/mm3 (4.6-6.20); Red Cell Distribution Width 13.2 % (11.5-14.5); White Blood Count 6.5 K/mm3 (4.5-10.0)
[2023-01-01 11:46] LABS: Alanine Aminotransferase 52 U/L (6-50); Albumin Level 4.5 g/dL (3.5-5.1); Alkaline Phosphatase 73 U/L (38-126); Anion Gap 6 mmol/L (8-16); Aspartate Amino Transferase 40 U/L (17-59); Bilirubin,Total 0.7 mg/dL (0.2-1.3); Blood Urea Nitrogen 12 mg/dL (9-20); Calcium 8.9 mg/dL (8.4-10.2); Carbon Dioxide 27 mmol/L (22-30); Chloride 107 mmol/L (98-107); Estimated Glomerular Filt Rate > 60; Glucose 96 mg/dL (65-110); Potassium 4.1 mmol/L (3.4-5.0); Sodium 140 mmol/L (137-145)
== END 2023-04-01 23:59 | disposition home or self-care (01) ==
LOC: ANHLAB 10:39
PROVIDERS: PCP Internal Medicine; Visit Provider Internal Medicine Rheumatology
DX: Z51.81 Encounter for therapeutic drug level monitoring (principal); Z79.899 Other long term (current) drug therapy
CPT/HCPCS: 36415; 80048; 80076; 85025

== ENCOUNTER 2023-04-04 12:11 | Outpatient (RCR) | payer OTHER, SELFPAY ==
[2023-04-04 13:06] LABS: Basophils Percent Auto 0.9 % (0.2-1.2); Eosinophils Absolute Auto 0.1 K/mm3 (0-0.3); Eosinophils Percent Auto 1.2 % (0-4.4); Hematocrit 49.2 % (42.0-52.0); Hemoglobin 16.9 g/dL (14.0-18.0); Immature Granulocyte Absolute 0.01 K/mm3 (0.00-0.031); Immature Granulocyte Percent A 0.2 % (0-0.5); Lymphocytes Absolute Auto 1.94 K/mm3 (0.9-3.2); Lymphocytes Percent Auto 44.7 % (18.3-44.2); Mean Corpuscular HGB Conc 34.3 g/dl (32-36); Mean Corpuscular Hemoglobin 31.9 pg (26-34); Mean Corpuscular Volume 92.8 fl (80-100); Mean Platelet Volume 12.1 fl (7.4-10.4); Monocytes Absolute Auto 0.4 K/mm3 (0.1-0.6); Neutrophils Absolute Auto 1.9 K/mm3 (1.3-6.7); Platelet Count Result 136 k/mm3 (150-375); Red Cell Distribution Width 13.4 % (11.5-14.5); White Blood Count 4.3 K/mm3 (4.5-10.0)
[2023-04-04 14:49] LABS: Alanine Aminotransferase 58 U/L (6-50); Albumin Level 4.5 g/dL (3.5-5.1); Alkaline Phosphatase 71 U/L (38-126); Anion Gap 6 mmol/L (8-16); Aspartate Amino Transferase 51 U/L (17-59); Bilirubin,Total 0.6 mg/dL (0.2-1.3); Blood Urea Nitrogen 13 mg/dL (9-20); Calcium 9.5 mg/dL (8.4-10.2); Carbon Dioxide 26 mmol/L (22-30); Chloride 105 mmol/L (98-107); Estimated Glomerular Filt Rate > 60; Glucose 74 mg/dL (65-110); Potassium 4.1 mmol/L (3.4-5.0); Sodium 137 mmol/L (137-145)
== END 2023-07-03 23:59 | disposition home or self-care (01) ==
LOC: ANHLAB 12:11
PROVIDERS: PCP Internal Medicine; Visit Provider Internal Medicine Rheumatology
DX: Z51.81 Encounter for therapeutic drug level monitoring (principal); Z79.899 Other long term (current) drug therapy
CPT/HCPCS: 36415; 80048; 80076; 85025

== ENCOUNTER 2023-06-07 07:43 | Outpatient (CLI) | payer OTHER, SELFPAY ==
--- NOTE | ~2023-06-07 | US_ITS ---
EXAMINATION: US abdomen limited DATE: 06/07/2023 08:25 INDICATION: Thrombocytopenia. TECHNIQUE: Multiple grayscale and Doppler ultrasound images of the abdomen were obtained. COMPARISON: None FINDINGS: The visualized portions of the head, body, and tail of the pancreas are normal. There is di ffuse hepatic steatosis. There is normal flow in main portal vein. The gallbladder is normal in size. No gallstones or gallbladder wall thickening. There is no sonographic Diaz sign. The common duct i s normal and measures 6 mm. The spleen is normal in size and measures 10.4 cm. IMPRESSION: 1. Diffuse hepatic steatosis. Reviewed, dictated and finalized at location A.
== END 2023-06-07 07:44 | disposition home or self-care (01) ==
LOC: ANHIMG 07:46
PROVIDERS: PCP Internal Medicine; Visit Provider Internal Medicine Hematology & Oncology
DX: D69.6 Thrombocytopenia, unspecified (principal); E53.8 Deficiency of other specified B group vitamins; K76.0 Fatty (change of) liver, not elsewhere classified
CPT/HCPCS: 76705

== ENCOUNTER 2023-09-20 09:36 | Outpatient (RCR) | payer OTHER, SELFPAY ==
[2023-07-04 12:53] LABS: Basophils Percent Auto 0.6 % (0.2-1.2); Eosinophils Absolute Auto 0.1 K/mm3 (0-0.3); Eosinophils Percent Auto 1.9 % (0-4.4); Hematocrit 48.4 % (42.0-52.0); Hemoglobin 16.6 g/dL (14.0-18.0); Immature Granulocyte Absolute 0.02 K/mm3 (0.00-0.031); Immature Granulocyte Percent A 0.4 % (0-0.5); Lymphocytes Absolute Auto 2.03 K/mm3 (0.9-3.2); Mean Corpuscular HGB Conc 34.3 g/dl (32-36); Mean Corpuscular Hemoglobin 32.2 pg (26-34); Mean Platelet Volume 12.2 fl (7.4-10.4); Monocytes Absolute Auto 0.5 K/mm3 (0.1-0.6); Neutrophils Absolute Auto 2.1 K/mm3 (1.3-6.7); Neutrophils Percent Auto 44.1 % (45.5-73.1); Platelet Count Result 112 k/mm3 (150-375); Red Blood Count 5.15 M/mm3 (4.6-6.20); Red Cell Distribution Width 13.4 % (11.5-14.5); White Blood Count 4.7 K/mm3 (4.5-10.0)
[2023-07-04 13:03] LABS: Alanine Aminotransferase 67 U/L (6-50); Albumin Level 4.3 g/dL (3.5-5.1); Alkaline Phosphatase 71 U/L (38-126); Anion Gap 6 mmol/L (8-16); Aspartate Amino Transferase 48 U/L (17-59); Blood Urea Nitrogen 12 mg/dL (9-20); Carbon Dioxide 25 mmol/L (22-30); Chloride 105 mmol/L (98-107); Estimated Glomerular Filt Rate > 60; Glucose 82 mg/dL (65-110); Potassium 3.9 mmol/L (3.4-5.0); Sodium 136 mmol/L (137-145)
[2023-09-20 10:14] LABS: Basophils Absolute Auto 0.1 K/mm3 (0.0-0.1); Eosinophils Absolute Auto 0.1 K/mm3 (0-0.3); Eosinophils Percent Auto 1.9 % (0-4.4); Hemoglobin 16.3 g/dL (14.0-18.0); Immature Granulocyte Absolute 0.03 K/mm3 (0.00-0.031); Immature Granulocyte Percent A 0.6 % (0-0.5); Lymphocytes Absolute Auto 1.87 K/mm3 (0.9-3.2); Lymphocytes Percent Auto 38.9 % (18.3-44.2); Mean Corpuscular Hemoglobin 31.5 pg (26-34); Mean Corpuscular Volume 92.8 fl (80-100); Mean Platelet Volume 12.3 fl (7.4-10.4); Monocytes Absolute Auto 0.6 K/mm3 (0.1-0.6); Monocytes Percent Auto 12.3 % (2.6-8.5); Neutrophils Absolute Auto 2.2 K/mm3 (1.3-6.7); Neutrophils Percent Auto 45.3 % (45.5-73.1); Platelet Count Result 115 k/mm3 (150-375); Red Blood Count 5.17 M/mm3 (4.6-6.20); Red Cell Distribution Width 12.6 % (11.5-14.5); White Blood Count 4.8 K/mm3 (4.5-10.0)
[2023-09-20 11:00] LABS: Alanine Aminotransferase 71 U/L (6-50); Albumin Level 4.3 g/dL (3.5-5.1); Alkaline Phosphatase 85 U/L (38-126); Anion Gap 8 mmol/L (8-16); Aspartate Amino Transferase 54 U/L (17-59); Blood Urea Nitrogen 14 mg/dL (9-20); Calcium 9.2 mg/dL (8.4-10.2); Carbon Dioxide 25 mmol/L (22-30); Chloride 105 mmol/L (98-107); Estimated Glomerular Filt Rate > 60; Glucose 101 mg/dL (65-110); Potassium 3.8 mmol/L (3.4-5.0); Sodium 138 mmol/L (137-145)
== END 2023-10-02 23:59 | disposition home or self-care (01) ==
LOC: ANHLAB 09:36
PROVIDERS: PCP Internal Medicine; Visit Provider Internal Medicine Rheumatology
DX: Z51.81 Encounter for therapeutic drug level monitoring (principal); Z79.899 Other long term (current) drug therapy
CPT/HCPCS: 36415; 80048; 80076; 85025

== ENCOUNTER 2024-01-02 11:38 | Outpatient (RCR) | payer OTHER, SELFPAY ==
[2024-01-02 12:12] LABS: Basophils Percent Auto 0.6 % (0.2-1.2); Eosinophils Absolute Auto 0.1 K/mm3 (0-0.3); Eosinophils Percent Auto 1.8 % (0-4.4); Hematocrit 48.6 % (42.0-52.0); Hemoglobin 16.6 g/dL (14.0-18.0); Immature Granulocyte Absolute 0.02 K/mm3 (0.00-0.031); Immature Granulocyte Percent A 0.4 % (0-0.5); Lymphocytes Absolute Auto 2.15 K/mm3 (0.9-3.2); Lymphocytes Percent Auto 43.2 % (18.3-44.2); Mean Corpuscular HGB Conc 34.2 g/dl (32-36); Mean Corpuscular Hemoglobin 31.9 pg (26-34); Mean Corpuscular Volume 93.3 fl (80-100); Mean Platelet Volume 12.4 fl (7.4-10.4); Monocytes Absolute Auto 0.5 K/mm3 (0.1-0.6); Monocytes Percent Auto 9.4 % (2.6-8.5); Neutrophils Absolute Auto 2.2 K/mm3 (1.3-6.7); Neutrophils Percent Auto 44.6 % (45.5-73.1); Platelet Count Result 123 k/mm3 (150-375); Red Blood Count 5.21 M/mm3 (4.6-6.20); Red Cell Distribution Width 12.8 % (11.5-14.5)
[2024-01-02 12:36] LABS: Alanine Aminotransferase 57 U/L (6-50); Albumin Level 4.5 g/dL (3.5-5.1); Alkaline Phosphatase 60 U/L (38-126); Anion Gap 8 mmol/L (4-12); Aspartate Amino Transferase 43 U/L (17-59); Blood Urea Nitrogen 13 mg/dL (9-20); Calcium 9.4 mg/dL (8.4-10.2); Carbon Dioxide 25 mmol/L (22-30); Chloride 106 mmol/L (98-107); Estimated Glomerular Filt Rate > 60; Glucose 89 mg/dL (65-110); Potassium 3.9 mmol/L (3.4-5.0); Sodium 139 mmol/L (137-145)
== END 2024-04-01 23:59 | disposition home or self-care (01) ==
LOC: ANHLAB 11:38
PROVIDERS: PCP Internal Medicine; Visit Provider Internal Medicine Rheumatology
DX: Z51.81 Encounter for therapeutic drug level monitoring (principal); Z79.899 Other long term (current) drug therapy
CPT/HCPCS: 36415; 80048; 80076; 85025